=== PATIENT | male | born 1985 | race Caucasian/White ===

== ENCOUNTER → 2019-03-17 | Outpatient (CLI) | payer OTHER ==
[~2019-03-17] MED LIST: CLIN300 PO; CRUTCH USE; HYDACE5 PO; INDO50 PO; NAPR500 PO; OXYACE5T PO; PENVK500 PO; PRED20 PO; RXOXYACE PO; TOBR.3OPSO OP
== END | disposition home or self-care (01) ==
LOC: LAB SHORT 18:00 → LAB 18:00
DX: R10.9 Unspecified abdominal pain (principal); R35.0 Frequency of micturition
CPT/HCPCS: 87086

== ENCOUNTER 2020-03-27 17:30 | Emergency (ER) | payer SELFPAY ==
[~2020-03-27] VITALS: Ht 165.1 cm; Wt 79.4 kg
[2020-03-27] MEDS ORDERED: Prednisone20 MG PO (20:59)
[2020-03-27] MEDS ORDERED: Zithromax250 MG PO (21:00)
== END 2020-03-27 21:15 | disposition home or self-care (01) ==
LOC: ER 17:30
DX: J45.909 Unspecified asthma, uncomplicated (principal); Z20.828 Contact with and (suspected) exposure to other viral communicable diseases; F17.200 Nicotine dependence, unspecified, uncomplicated
CPT/HCPCS: 71045; 94640; 99283-25; J7512; U0003